=== PATIENT | female | born 1970 | race Hispanic/Latino ===

== ENCOUNTER 2016-11-22 07:57 | Inpatient (IN) | payer MEDICAID, OTHER ==
--- NOTE | 2016-11-22 08:07 | C.PDOC ---
History Of Present Illness 46 y/o female, whose PMHx includes depression and anxiety, is transferred to the ED for psych admission for suicide attempt and polysubstance abuse. note that the patient was medically cleared prior to acceptance. She denies any pain or other physical complaints. Time Seen by Provider: 11/22/16 08:04 Chief Complaint (Nursing): Psychiatric Evaluation History Per: Patient History/Exam Limitations: no limitations Onset/Duration Of Symptoms: Days, Gradual, Persistent Current Symptoms Are (Timing): Still Present Associated Symptoms: Depression, Suicidal Thoughts Recent travel outside of the [place]: No Past Medical History Reviewed: Historical Data, Nursing Documentation, Vital Signs Vital Signs: Last Vital Signs Temp 98.8 F 11/22/16 08:04 Pulse 79 11/22/16 08:04 Resp 16 11/22/16 08:04 BP 129/75 11/22/16 08:04 Pulse Ox 95 11/22/16 08:04 - Medical History PMH: Anxiety, Depression Other Surgeries: BREAST AUGMENTATION - [facility] Procedures DETOXIFICATION SERVICES FOR SUBSTANCE ABUSE TREATMENT (11/24/15) 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 Musculoskeletal: Negative for: Other (pain) Psych: Positive for: Depression, Suicidal ideation Physical Exam - Physical Exam Appears: Non-toxic, No Acute Distress Skin: Normal Color, Warm, Dry Head: Atraumatic, Normacephalic Neck: Normal ROM Chest: Symmetrical Cardiovascular: Rhythm Regular Respiratory: Normal Breath Sounds, No Rales, No Rhonchi, No Wheezing Gastrointestinal/Abdominal: Normal Exam, Soft, No Tenderness Extremity: Normal ROM Neurological/Psych: Oriented x3, Normal Speech, Normal Cognition Disposition Discussed With : Margret Wright Doctor Will See Patient In The: Hospital Counseled Patient/Family Regarding: Studies Performed, Diagnosis - Disposition Disposition: HOSPITALIZED Disposition Time: 08:08 Condition: STABLE - POA Present On Arrival: None - Clinical Impression Clinical Impression: Severe depression, Suicide attempt - Scribe Statement The provider has reviewed the documentation as recorded by the Scribe (Lydia Calle) Provider Attestation: All medical record entries made by the Scribe were at my direction and personally dictated by me. I have reviewed the chart and agree that the record accurately reflects my personal performance of the history, physical exam, medical decision making, and the department course for this patient. I have also personally directed, reviewed, and agree with the discharge instructions and disposition. Decision To Admit - Pt Status Changed To: Hospital Disposition Of: Inpatient - Admit Certification Admit to Inpatient:: After my assessment, the patient will require hospitalization for at least two midnights. This is because of the severity of symptoms shown, intensity of services needed, and/or the medical risk in this patient being treated as an outpatient. - InPatient: Physician Admission Certification: I certify that this patient requires 2 or more midnights of care for the following reason:: see note - . Bed Request Type: Psychiatry Admitting Physician: Margret Wright Patient Diagnosis: Severe depression, Suicide attempt
[2016-11-22 08:08] VITALS: O2SAT 95
--- NOTE | 2016-11-22 12:39 | PCM.PSYCH ---
Initial Psychiatric Evaluation - Initial Psychiatric Evaluation Type of Admission: Voluntary Legal Status: Capacity Chief Complaint (in patient's own words): i was feeling depressed. History of Present Illness and Precipitating Events: This is a 46 yo CF who is currently lives with her boyfriend and has a long history of bipolar disorder and alcohol use disorder. Pt came to ED for worsening of depression, suicidal ideation with an alleged attempt by OD on heroin. Loom Mechanic is familiar with this patient. Pt has been admitted to the [facility] last year after OD on prescribed medications and alcohol intoxication. Pt reports that soon after discharge from she stopped taking her medications and relapsed on drinking. As per her she started drinking 2 to 6 pints on a daily basis. Pt also reports of abusing almost 10-20 bags of heroin twice weekly. As per the pt, she consumed more than 2 pints of vodka, became increasingly depressed and OD on heroin by sniffing more than 15 bags, boyfriend got concerned and called police and she was escorted to the hospital. Pt reports of increasingly depressed mood, and reports at times feelings of hopelessness and helplessness. She also reports irritability and agitation. She reports withdrawal symptoms from drinking i.e., sweating, nausea, anxiety, and headache. She denies any shakes or seizures. She denies any auditory or visual hallucinations and any persecutory delusions. She denies any other substance abuse. Past Medical History Asthma Past Psychiatric History - Past Psychiatric History Previous Treatment History: Inpatient Pertinent Medical Hx (Current Medical&Sleep Prob, Allergies): Allergies Allergy/AdvReac Type Severity Reaction Status Date / Time No Known Allergies Allergy Verified 11/22/16 07:59 Gabapentin [Neurontin] 300 mg PO TID #90 cap 01/17/16 Fruitvale Carbonate [Fruitvale Carbonate 300MG] 600 mg PO BID #60 cap 01/17/16 Review of Systems - Review of Systems All systems: reviewed and no additional remarkable complaints except - Psychiatric Psychiatric: Anxiety, Depression, Irritability, Mood Swings, Suicidal Ideation Mental Status Examination - Personal Presentation Personal Presentation: Looks stated age - Affect Affect: Constricted - Motor Activity Motor Activity: Psychomotor Agitation - Reliability in Providing Information Reliability in Providing Information: Good - Mood Mood: Depressed, Anxious - Formal Thought Process Formal Thought Process: Flight of ideas - Obsessions/Compulsions Obsessions: No Compulsions: No - Cognitive Functions Orientation: Person, Place, Situation, Time Sensorium: Alert Attention/Concentration: Attentive Abstract Thinking: [place] Estimate of Intelligence: Below average Judgement: Imparied, as evidence by: Poor judgement, Imparied, as evidence by: Lack of insight into illness - Risk Risk: Suicidal, Diminished functioning - Strength & Assets Inventory Strength & Assets Inventory: Family support DSM 5 DX - DSM 5 DSM 5 Diagnosis: Bipolar disorder most recent depressed severe without psychotic features Alcohol use disorder severe Alcohol withdrawal uncomplicated Opiate use disorder severe - Recommended/Plan of Treatment Treatment Recommendations and Plan of Treatment: Bipolar disorder most recent depressed severe without psychotic features CBT Psychoeducation Supportive therapy, individual therapy Zoloft 50 mg PO daily Trazodone 50 mg PO Q HS Alcohol use disorder severe CBT Psychoeducation Supportive therapy, individual therapy Use [place] for abstinence Alcohol withdrawal uncomplicated CBT Psychoeducation Supportive therapy, individual therapy Librium when necessary Librium taper folic acid/thiamine/multivitamin Opiate use disorder severe CBT & Psychoeducation Methadone 5 mg when necessary for opiate withdrawal Use [place] for abstinence HTN Monitor signs and symptoms - Smoking Cessation Smoking Cessation Initiated: No
[2016-11-23] MEDS: Multiple Vitamins Tab PO SCH (09:40)
--- NOTE | 2016-11-23 12:48 | PCM.PYCHPN ---
Psychiatric Progress Note - Psychiatric Progress Note Patient seen today, length of contact: 18 min Patient Chief Complaint: i was feeling a little better. Problems Identified/Issues Discussed: Patient seen and evaluated, chart reviewed and discussed with the nurse. Supportive therapy and psychoeducation were given. Patient reports somewhat improvement in her mood than yesterday but still reports withdrawal symptoms including, cramps, nausea, anxiety and headaches. Patient reports depressed mood, irritability and agitation. She denies any auditory or visual hallucinations. She is tolerating the withdrawal medications and denies any side effects. Today she c/o toothache and requested amoxicillin. Medication Change: Yes (Start amoxicillin) Medical Record Reviewed: Yes Mental Status Examination - Cognitive Function Orientation: Person, Place, Situation, Time Memory: Intact Attention: WNL Concentration: Poor Association: WNL Fund of Knowledge: Poor - Mood Mood: Depressed, Anxious - Affect Affect: Constricted - Speech Speech: Soft - Formal Thought Process Formal Thought Process: Flight of ideas - Suicidal Ideation Suicidal Ideation: No - Homicidal Ideation Homicidal Ideation: No Goal/Treatment Plan - Goal/Treatment Plan Need for Continued Stay: Discharge may exacerbated symptoms, Severe functional impairment Progress Toward Problem(s) and Goals/Treatment Plan: Bipolar disorder most recent depressed severe without psychotic features CBT Psychoeducation Supportive therapy, individual therapy Zoloft 50 mg PO daily Trazodone 50 mg PO Q HS Alcohol use disorder severe CBT Psychoeducation Supportive therapy, individual therapy Use [place] for abstinence Alcohol withdrawal uncomplicated CBT Psychoeducation Supportive therapy, individual therapy Librium when necessary Librium taper folic acid/thiamine/multivitamin Opiate use disorder severe CBT & Psychoeducation Methadone 5 mg when necessary for opiate withdrawal Use [place] for abstinence HTN Monitor signs and symptoms Tooth infection Continue amoxicillin Monitor signs symptoms Constipation MOM when necessary Monitor signs symptoms - Smoking Cessation Smoking Cessation Initiated: No
[2016-11-23] MEDS: Magnesium Hydroxide Susp 30 ml UD PO PRN (13:20)
[2016-11-24] MEDS: Multiple Vitamins Tab PO SCH (09:15)
[2016-11-24] MEDS: Magnesium Hydroxide Susp 30 ml UD PO PRN ×2 (09:30→21:18)
--- NOTE | 2016-11-24 14:59 | PCM.PYCHPN ---
Psychiatric Progress Note - Psychiatric Progress Note Patient seen today, length of contact: 15 minutes Patient Chief Complaint: I feel little better with the treatment Problems Identified/Issues Discussed: Patient seen. Chart reviewed. Case discussed with the staff. Issues related to illness and treatment were discussed with the patient, patient reported compliant with treatment with no adverse affects, tolerating treatment very well. Patient reported feeling little better with the treatment. At the time of evaluation, patient was awake alert oriented 3, had no delusions, no auditory or visual hallucinations, no suicidal ideations or homicidal ideations. Medical Problems: Hypertension Asthma Diagnostic Results: Reviewed DSM 5 Symptoms Update: Improving with treatment Medication Change: No Medical Record Reviewed: Yes Mental Status Examination - Cognitive Function Orientation: Person, Place, Situation, Time Memory: Intact Attention: WNL Concentration: WNL Association: WNL Fund of Knowledge: [facility] Decription of patient's judgement and insights: Fair - Mood Mood: Anxious - Affect Affect: Other (Appropriate) - Speech Speech: Soft - Formal Thought Process Formal Thought Process: No Impairment Psychotic Thoughts and Behaviors: None - Suicidal Ideation Suicidal Ideation: No - Homicidal Ideation Homicidal Ideation: No Goal/Treatment Plan - Goal/Treatment Plan Need for Continued Stay: Remain at risks for inpatient hospitalization, Discharge may exacerbated symptoms, Severe functional impairment Progress Toward Problem(s) and Goals/Treatment Plan: Patient education Supportive therapy Continue treatment as before Patient wants to go to [facility] for follow-up care after discharge from the hospital. Estimated Date of D/C: 11/28/16 - Smoking Cessation Smoking Cessation Initiated: No
[2016-11-25] MEDS: Multiple Vitamins Tab PO SCH (09:13)
[2016-11-25] MEDS: Magnesium Hydroxide Susp 30 ml UD PO PRN (10:38)
--- NOTE | 2016-11-25 12:48 | PCM.PYCHPN ---
Psychiatric Progress Note - Psychiatric Progress Note Patient seen today, length of contact: 15 minutes Patient Chief Complaint: I feel better with the treatment Problems Identified/Issues Discussed: Patient seen. Chart reviewed. Case discussed with the staff. Issues related to illness and treatment were discussed with the patient, patient reported compliant with treatment with no adverse affects, tolerating treatment very well. Patient reported had some suicidal ideations without any plan but she didn 't tell to anyone including nursing staff. Denied any current suicidal ideations. Patient reported feeling better with the treatment with no adverse affects. We will start Neurontin 300 mg twice a day. Patient admitted. At the time of evaluation, patient was awake alert oriented 3, had no delusions, no auditory or visual hallucinations, no suicidal ideations or homicidal ideations. Medical Problems: Hypertension Asthma Diagnostic Results: Reviewed DSM 5 Symptoms Update: Improving with treatment Medication Change: No Medical Record Reviewed: Yes Mental Status Examination - Cognitive Function Orientation: Person, Place, Situation, Time Memory: Intact Attention: WNL Concentration: WNL Association: WN Fund of Knowledge: [facility] Decription of patient's judgement and insights: Fair - Mood Mood: Anxious (Less than before) - Affect Affect: Other (Appropriate) - Speech Speech: Soft - Formal Thought Process Formal Thought Process: No Impairment Psychotic Thoughts and Behaviors: None - Suicidal Ideation Suicidal Ideation: No - Homicidal Ideation Homicidal Ideation: No Goal/Treatment Plan - Goal/Treatment Plan Need for Continued Stay: Remain at risks for inpatient hospitalization, Discharge may exacerbated symptoms, Severe functional impairment Progress Toward Problem(s) and Goals/Treatment Plan: Patient education Supportive therapy Start Neurontin 300 mg twice a day Continue rest of the treatment as before Patient wants to go to [facility] follow-up care after discharge from the hospital. Estimated Date of D/C: 11/28/16 - Smoking Cessation Smoking Cessation Initiated: No
[2016-11-25] MEDS ORDERED: Bisacodyl 5mg EC Tab PO ONE (12:50)
[2016-11-26] MEDS: Multiple Vitamins Tab PO SCH (10:07)
[2016-11-26] MEDS: Magnesium Hydroxide Susp 30 ml UD PO PRN (13:09)
--- NOTE | 2016-11-26 13:25 | PCM.PYCHPN ---
Psychiatric Progress Note - Psychiatric Progress Note Patient seen today, length of contact: 15 minutes Patient Chief Complaint: i m feeling a little better. Problems Identified/Issues Discussed: Patient seen and evaluated, chart reviewed and discussed with the nurse. As per staff patient is improving, however patient reports depressed mood, poor sleep and poor appetite. She reports withdrawal symptoms including, cramps, nausea, and headaches. She still reports irritability and agitation. She denies any auditory or visual hallucinations. She is tolerating the withdrawal medications and denies any side effects. Supportive therapy and psychoeducation were given. Medication Change: Yes (discontinue Zoloft, start Remeron) Medical Record Reviewed: Yes Mental Status Examination - Cognitive Function Orientation: Person, Place, Situation, Time Memory: Intact Attention: WNL Concentration: WNL Association: WNL Fund of Knowledge: WNL - Mood Mood: Depressed, Anxious (Less than before) - Affect Affect: Constricted, Depressed - Speech Speech: Soft - Formal Thought Process Formal Thought Process: No Impairment - Suicidal Ideation Suicidal Ideation: No - Homicidal Ideation Homicidal Ideation: No Goal/Treatment Plan - Goal/Treatment Plan Need for Continued Stay: Remain at risks for inpatient hospitalization, Discharge may exacerbated symptoms, Severe functional impairment Progress Toward Problem(s) and Goals/Treatment Plan: Bipolar disorder most recent depressed severe without psychotic features CBT Psychoeducation Supportive therapy, individual therapy discontinue Zoloft 50 mg PO daily Trazodone 50 mg PO Q HS start Remeron 15 mg by mouth daily at bedtime Alcohol use disorder severe CBT Psychoeducation Supportive therapy, individual therapy Use [place] for abstinence Alcohol withdrawal uncomplicated CBT Psychoeducation Supportive therapy, individual therapy Librium when necessary Librium taper folic acid/thiamine/multivitamin Opiate use disorder severe CBT & Psychoeducation Methadone 5 mg when necessary for opiate withdrawal Use [place] for abstinence HTN Monitor signs and symptoms Tooth infection Continue amoxicillin Monitor signs symptoms Constipation MOM when necessary Monitor signs symptoms Estimated Date of D/C: 11/28/16 - Smoking Cessation Smoking Cessation Initiated: No
[2016-11-27] MEDS: Magnesium Hydroxide Susp 30 ml UD PO PRN (09:32)
[2016-11-27] MEDS: Multiple Vitamins Tab PO SCH (09:32)
--- NOTE | 2016-11-27 17:50 | PCM.PYCHPN ---
Psychiatric Progress Note - Psychiatric Progress Note Patient seen today, length of contact: 15 minutes Patient Chief Complaint: my mood is getting better Problems Identified/Issues Discussed: Patient seen and evaluated, chart reviewed and discussed with the nurse. Patient reports that Remeron is working well and getting better. She still reports withdrawal symptoms including anxiety and headaches. as per the staff patient has been socializing and her sleep is getting better. She denies any auditory or visual hallucinations. She is taking medications and denies any side effects. Supportive therapy was given Medication Change: Yes (start gabapentin) Medical Record Reviewed: Yes Mental Status Examination - Cognitive Function Orientation: Person, Place, Situation, Time Memory: Intact Attention: WNL Concentration: WNL Association: WNL Fund of Knowledge: WNL - Mood Mood: Anxious (Less than before) - Affect Affect: Other (Appropriate) - Speech Speech: Soft - Formal Thought Process Formal Thought Process: No Impairment - Suicidal Ideation Suicidal Ideation: No - Homicidal Ideation Homicidal Ideation: No Goal/Treatment Plan - Goal/Treatment Plan Need for Continued Stay: Remain at risks for inpatient hospitalization, Discharge may exacerbated symptoms, Severe functional impairment, Other Progress Toward Problem(s) and Goals/Treatment Plan: Bipolar disorder most recent depressed severe without psychotic features CBT Psychoeducation Supportive therapy, individual therapy Trazodone 50 mg PO Q HS Remeron 15 mg by mouth daily at bedtime Gabapentin 300 mg by mouth TID Alcohol use disorder severe CBT Psychoeducation Supportive therapy, individual therapy Use [place] for abstinence Alcohol withdrawal uncomplicated CBT Psychoeducation Supportive therapy, individual therapy Librium when necessary Librium taper folic acid/thiamine/multivitamin Opiate use disorder severe CBT & Psychoeducation Methadone 5 mg when necessary for opiate withdrawal Use [place] for abstinence HTN Monitor signs and symptoms Tooth infection Continue amoxicillin Monitor signs symptoms Constipation MOM when necessary Monitor signs symptoms Estimated Date of D/C: 11/28/16 - Smoking Cessation Smoking Cessation Initiated: No
[2016-11-28 09:48] VITALS: BP 99/64; PULSE 54; RESP 20; TEMP 97.2
[2016-11-28] MEDS: Multiple Vitamins Tab PO SCH (10:11)
--- NOTE | 2016-11-28 10:16 | PCM.PYCHDC ---
Mental Status Examination - Mental Status Examination Orientation: Person, Place, Situation, Time Memory: Intact Mood: Neutral Affect: Constricted Speech: Soft Attention: WNL Concentration: WNL Association: WNL Fund of Knowledge: WNL Formal Thought Process: No Impairment Description of patient's judgement and insight: good, fair Psychotic Thoughts and Behaviors: denies any AVH Suicidal Ideation: No Current Homicidal Ideation?: No Discharge Summary - Discharge Note Reason for Hospitalization: This is a 46 yo CF who is currently lives with her boyfriend and has a long history of bipolar disorder and alcohol use disorder. Pt came to ED for worsening of depression, suicidal ideation with an alleged attempt by OD on heroin. Senior Information Security Architect is familiar with this patient. Pt has been admitted to the [facility] last year after OD on prescribed medications and alcohol intoxication. Pt reports that soon after discharge from she stopped taking her medications and relapsed on drinking. As per her she started drinking 2 to 6 pints on a daily basis. Pt also reports of abusing almost 10-20 bags of heroin twice weekly. As per the pt, she consumed more than 2 pints of vodka, became increasingly depressed and OD on heroin by sniffing more than 15 bags, boyfriend got concerned and called police and she was escorted to the hospital. Pt reports of increasingly depressed mood, and reports at times feelings of hopelessness and helplessness. She also reports irritability and agitation. She reports withdrawal symptoms from drinking i.e., sweating, nausea, anxiety, and headache. She denies any shakes or seizures. She denies any auditory or visual hallucinations and any persecutory delusions. She denies any other substance abuse. Consultations:: List each consultation separately and include: 1. Reason for request. 2. Findings. 3. Follow-up Summary of Hospital Course include:: 1. Description of specific treatment plan utilized for patients during their course of treatmen. 2. Summarize the time- course for resolution of acute symptoms and/or regressed behaviors. 3. Describe issues identified and worked on during hospitalization. 4. Describe medication utilized. 5. Describe medical problems identified and treated. 6. Reassessment of suicide risk Summary of Hospital Course: During the course of her stay, patient (pt) started progressively improving and she no longer remained anxious, depressed and suicidal. Her mood was getting better and she started attending groups and meetings and started socializing. The doses of her medications were maximized and patient denied any feelings of hopelessness, helplessness, and worthlessness, denied any problem with the sleep or appetite, denied suicidal ideation or homicidal ideation. Pt denied any auditory or visual hallucinations. Patient reported improvement in her mood and tolerated these medications very well and denied any side effects. - Final Diagnosis (DSM 5) Condition upon Discharge: STABLE DSM 5: Bipolar disorder most recent depressed severe without psychotic features Alcohol use disorder severe Alcohol withdrawal uncomplicated Opiate use disorder severe Disposition: HOME/ ROUTINE Follow-up Treatment Plan: Education: Pt was educated and counseled about the risks and benefits of taking and not taking medications. Pt was educated and counseled about the risks of drinking and abusing drugs. Pt was educated and counseled to go to the ER or call 911 if pt develop suicidal ideation or homicidal ideation, worsening of symptoms or severe side effects of the meds. Prescriptions/Medication Reconciliation: traZODone [Desyrel] 50 mg PO HS PRN #30 tab PRN Reason: Insomnia Gabapentin [Neurontin] 300 mg PO TID #90 cap Mirtazapine [Remeron] 15 mg PO HS #30 tab - Smoking Cessation Smoking Cessation Medication prescribed: No - Antipsychotic Medications Pt discharged on 2 or more routine antipsychotic medications: No
== END 2016-11-28 11:00 | disposition home or self-care (01) | DRG 430 ==
LOC: C.ER 07:57 → C.5E 08:08
PROVIDERS: ADMIT Psychiatry & Neurology Psychiatry; ATTEND Psychiatry & Neurology Psychiatry
PROC: GZ3ZZZZ Medication Management (ICD-10-PCS; principal; 2016-11-22)
PROC: HZ81ZZZ Medication Management for Substance Abuse Treatment, Methadone Maintenance (ICD-10-PCS; 2016-11-22)
PROC: HZ59ZZZ Individual Psychotherapy for Substance Abuse Treatment, Supportive (ICD-10-PCS; 2016-11-22)
PROC: GZ56ZZZ Individual Psychotherapy, Supportive (ICD-10-PCS; 2016-11-22)
DX: F31.4 Bipolar disorder, current episode depressed, severe, without psychotic features (principal); F11.20 Opioid dependence, uncomplicated; I10 Essential (primary) hypertension; F10.230 Alcohol dependence with withdrawal, uncomplicated; T40.1X2A Poisoning by heroin, intentional self-harm, initial encounter; J45.909 Unspecified asthma, uncomplicated; Y92.009 Unspecified place in unspecified non-institutional (private) residence as the place of occurrence of the external cause